=== PATIENT | female | born 2000 | race Caucasian/White ===

== ENCOUNTER 2018-10-14 14:53 | Emergency (ER) | payer OTHER ==
[~2018-10-14] VITALS: Ht 152.4 cm; Wt 59.4 kg
[2018-10-14 15:02] VITALS: Ht 152.4 cm; Wt 59.4 kg
[2018-10-14 17:15] VITALS: BP 120/75
== END 2018-10-14 17:15 | disposition home or self-care (01) ==
LOC: ED 14:53
DX: G56.01 Carpal tunnel syndrome, right upper limb (principal); Z98.890 Other specified postprocedural states
CPT/HCPCS: Q0092

== ENCOUNTER 2018-11-15 23:39 | Emergency (ER) | payer OTHER ==
[~2018-11-15] VITALS: Ht 152.4 cm; Wt 60.3 kg
[2018-11-15 23:41] VITALS: Ht 152.4 cm; Wt 60.3 kg
[2018-11-16 00:03] LABS: BASOPHIL % 0.7 % (0-2); RED CELL DISTRIBUTION WIDTH 12.9 % (11.5-14.5)
[2018-11-16 00:06] LABS: PLATELET COUNT 433 x10^3mcL (130-400)
[2018-11-16 00:22] LABS: CALCIUM 8.8 mg/dL (8.5-10.1); CARBON DIOXIDE 27.8 mmol/L (21-32); CHLORIDE SERUM 103 mmol/L (98-107); CREATININE SERUM 0.7 mg/dL (0.6-1.0); GFR1 > 60 mL/min; GLUCOSE SERUM 88 mg/dL (74-106); POTASSIUM SERUM 3.8 mmol/L (3.5-5.1); SODIUM SERUM 141 mmol/L (136-145)
[2018-11-16 00:26] LABS: ALBUMIN 4.1 g/dL (3.4-5.0); ALKALINE PHOSPHATASE 80 U/L (46-116); ALT/SGPT 56 U/L (14-59); AST/SGOT 30 U/L (15-37); BILIRUBIN TOTAL 0.4 mg/dL (0.20-1.00); LIPASE 96 IU/L (73-393)
[2018-11-16 01:03] LABS: microscopic required? YES; urine erythrocyte NEGATIVE (NEGATIVE)
[2018-11-16 01:04] LABS: AMPHETAMINE QUAL UR NONE DETECTED (See below)
[2018-11-16 03:05] VITALS: BP 108/55
== END 2018-11-16 03:05 | disposition home or self-care (01) ==
LOC: ED 23:39
PROVIDERS: Emergency Medicine
DX: R19.7 Diarrhea, unspecified (principal); R11.2 Nausea with vomiting, unspecified; R10.9 Unspecified abdominal pain; Z98.890 Other specified postprocedural states
CPT/HCPCS: J1885; J2405; J7030

== ENCOUNTER 2018-12-20 11:24 | Emergency (ER) | payer OTHER ==
[~2018-12-20] VITALS: Ht 160 cm; Wt 61.7 kg
[2018-12-20 11:30] VITALS: BP 132/66; Ht 160 cm; Wt 61.7 kg
== END 2018-12-20 15:28 | disposition home or self-care (01) ==
LOC: ED 11:24
DX: S93.401A Sprain of unspecified ligament of right ankle, initial encounter (principal); N76.0 Acute vaginitis; Z98.890 Other specified postprocedural states; W18.39XA Other fall on same level, initial encounter; Y93.89 Activity, other specified; Y92.89 Other specified places as the place of occurrence of the external cause; Y99.8 Other external cause status
CPT/HCPCS: 87491; 87591

== ENCOUNTER 2018-12-23 21:59 | Emergency (ER) | payer OTHER ==
[~2018-12-23] VITALS: Ht 152.4 cm; Wt 61.7 kg
[2018-12-23 22:10] VITALS: Ht 152.4 cm; Wt 61.7 kg
[2018-12-23 23:23] LABS: UA SPECIFIC GRAVITY 1.025 (1.005-1.035); microscopic required? YES; urine erythrocyte 1+ (NEGATIVE)
[2018-12-23 23:47] VITALS: BP 115/75
== END 2018-12-23 23:47 | disposition home or self-care (01) ==
LOC: ED 21:59
PROVIDERS: Emergency Medicine
DX: N39.0 Urinary tract infection, site not specified (principal)
CPT/HCPCS: J1885

== ENCOUNTER 2019-03-07 21:24 | Emergency (ER) | payer OTHER ==
[~2019-03-07] VITALS: Ht 152.4 cm; Wt 60.3 kg
[2019-03-07 21:45] VITALS: Ht 152.4 cm; Wt 60.3 kg
[2019-03-07 23:13] LABS: BASOPHIL % 0.5 % (0-2); PLATELET COUNT 460 x10^3mcL (130-400); RED CELL DISTRIBUTION WIDTH 12.9 % (11.5-14.5)
[2019-03-07 23:34] LABS: CARBON DIOXIDE 26.3 mmol/L (21-32); CHLORIDE SERUM 103 mmol/L (98-107); CREATININE SERUM 0.8 mg/dL (0.6-1.0); GFR1 > 60 mL/min; GLUCOSE SERUM 91 mg/dL (74-106); POTASSIUM SERUM 3.7 mmol/L (3.5-5.1); SODIUM SERUM 140 mmol/L (136-145)
[2019-03-07 23:35] LABS: ALKALINE PHOSPHATASE 71 U/L (46-116); ALT/SGPT 117 U/L (14-59); AMYLASE 59 U/L (25-115); AST/SGOT 43 U/L (15-37); CALCIUM 9.3 mg/dL (8.5-10.1); LIPASE 151 IU/L (73-393)
[2019-03-08 00:15] VITALS: BP 112/71
== END 2019-03-08 00:15 | disposition home or self-care (01) ==
LOC: ED 21:24
PROVIDERS: Emergency Medicine
DX: K29.70 Gastritis, unspecified, without bleeding (principal); R74.0 Nonspecific elevation of levels of transaminase and lactic acid dehydrogenase [LDH]; R42 Dizziness and giddiness; Z98.890 Other specified postprocedural states
CPT/HCPCS: 36415

== ENCOUNTER 2019-11-09 17:10 | Emergency (ER) | payer OTHER ==
[~2019-11-09] VITALS: Ht 152.4 cm; Wt 68.9 kg
[2019-11-09 17:19] VITALS: Ht 152.4 cm; Wt 68.9 kg
[2019-11-09 19:09] LABS: BASOPHIL % 0.6 % (0-2); PLATELET COUNT 432 x10^3mcL (130-400); RED CELL DISTRIBUTION WIDTH 12.9 % (11.5-14.5)
[2019-11-09 19:13] LABS: CALCIUM 9.1 mg/dL (8.5-10.1); CARBON DIOXIDE 28.5 mmol/L (21-32); CHLORIDE SERUM 102 mmol/L (98-107); CREATININE SERUM 0.8 mg/dL (0.6-1.0); GFR1 > 60 mL/min; GLUCOSE SERUM 84 mg/dL (74-106); POTASSIUM SERUM 4.3 mmol/L (3.5-5.1); SODIUM SERUM 138 mmol/L (136-145)
[2019-11-09 19:17] LABS: ALBUMIN 4.2 g/dL (3.4-5.0); ALKALINE PHOSPHATASE 89 U/L (46-116); ALT/SGPT 96 U/L (14-59); AMYLASE 45 U/L (25-115); AST/SGOT 39 U/L (15-37); BILIRUBIN TOTAL 0.28 mg/dL (0.20-1.00); LIPASE 184 IU/L (73-393); TOTAL PROTEIN, SERUM 8.1 g/dL (6.4-8.2)
[2019-11-09 20:26] VITALS: BP 116/73
== END 2019-11-09 20:26 | disposition home or self-care (01) ==
LOC: ED 17:10
PROVIDERS: Emergency Medicine
DX: R07.89 Other chest pain (principal); Z98.890 Other specified postprocedural states
CPT/HCPCS: J1885; Q0092

== ENCOUNTER 2020-04-02 19:25 | Emergency (ER) | payer OTHER, SELFPAY ==
[~2020-04-02] VITALS: Ht 152.4 cm; Wt 71.7 kg
[2020-04-02 19:27] VITALS: Ht 152.4 cm; Wt 71.7 kg
[2020-04-02 20:22] VITALS: BP 120/82
== END 2020-04-02 20:22 | disposition home or self-care (01) ==
LOC: ED 19:25
DX: A08.4 Viral intestinal infection, unspecified (principal); Z20.828 Contact with and (suspected) exposure to other viral communicable diseases
CPT/HCPCS: Q0162; U0003